=== PATIENT | male | born 2000 | race Caucasian/White ===

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

== ENCOUNTER 2023-03-12 08:35 | Emergency (ER) | payer MEDICAID ==
[~2023-03-12] VITALS: Ht 165.1 cm; Wt 108.9 kg
[~2023-03-12 08:35] MED LIST: ACET-5629 PO
[2023-03-12 08:40] VITALS: BP 146/87; PULSE 101; RESP 15; TEMP 98; O2SAT 96
[2023-03-12] MEDS ORDERED: KETOROLAC 30 MG/ML VIAL IM ONE (08:55)
[2023-03-12] MEDS ORDERED: ACETAMINOPHEN EXTRA STRENGTH 500 MG TAB PO ONE (08:55)
[2023-03-12 10:19] VITALS: BP 132/80; PULSE 89; RESP 15; TEMP 98; O2SAT 96
== END 2023-03-12 10:19 | disposition home or self-care (01) ==
LOC: MED 08:35
DX: S39.012A Strain of muscle, fascia and tendon of lower back, initial encounter (principal); Z79.899 Other long term (current) drug therapy; X58.XXXA Exposure to other specified factors, initial encounter; Y92.89 Other specified places as the place of occurrence of the external cause; Y93.89 Activity, other specified; Y99.8 Other external cause status
CPT/HCPCS: 72110; 96372; 99283; J1885

== ENCOUNTER 2023-08-22 10:44 | Emergency (ER) | payer OTHER, MEDICAID ==
[~2023-08-22] VITALS: Ht 170.2 cm; Wt 122.5 kg
[2023-08-22 10:49] VITALS: BP 137/75; PULSE 85; RESP 16; TEMP 98.6; O2SAT 95
[2023-08-22] MEDS ORDERED: NAPR-337 PO (12:02)
[2023-08-22] MEDS: KETOROLAC 30 MG/ML VIAL IM ONE (12:33)
== END 2023-08-22 12:34 | disposition home or self-care (01) ==
LOC: MED 10:44
DX: M72.2 Plantar fascial fibromatosis (principal); Z79.899 Other long term (current) drug therapy
CPT/HCPCS: 96372; 99283; J1885

== ENCOUNTER 2023-10-01 09:57 | Emergency (ER) | payer OTHER, MEDICAID ==
[~2023-10-01] VITALS: Ht 167.6 cm; Wt 125.8 kg
[~2023-10-01 09:57] MED LIST changes: +NAPR-337 PO
[2023-10-01 10:16] VITALS: BP 145/88; PULSE 71; RESP 18; TEMP 98.6; O2SAT 96
[2023-10-01] MEDS: KETOROLAC 60 MG/2 ML VIAL IM ONE (11:02)
[2023-10-01] MEDS ORDERED: ACET-8905 PO (11:37)
[2023-10-01] MEDS ORDERED: IBUP-2213 PO (11:37)
== END 2023-10-01 11:55 | disposition home or self-care (01) ==
LOC: MED 09:57
DX: M54.6 Pain in thoracic spine (principal); Z90.49 Acquired absence of other specified parts of digestive tract; Z79.899 Other long term (current) drug therapy
CPT/HCPCS: 96372; 99283; J1885